=== PATIENT | female | born 1990 | race Caucasian/White ===

== ENCOUNTER → 2016-05-08 | Outpatient (CLI) | payer OTHER ==
[~2016-05-08] MED LIST: GADOBUTROL 10 ML VIAL IVP ONE
== END ==
LOC: FIMAGING 10:32
PROVIDERS: ATTEND Family Medicine Sports Medicine
DX: R91.8 Other nonspecific abnormal finding of lung field (principal)
CPT/HCPCS: A9585

== ENCOUNTER 2016-08-30 06:27 | Inpatient (IN) | payer OTHER ==
--- NOTE | 2016-08-25 19:38 | GHP ---
[f rep st] PREOP HISTORY AND PHYSICAL DATE OF ADMISSION: 08/30/2016 HISTORY OF PRESENT ILLNESS: The patient is a 26-year-old female who was found to have a 4.7 x 4.1 x 4.9 cm mass at the apex of her right lung that may originate from the T2-3 foramen. This was incidentally found on a workup after a fall from a chair lift while skiing. She suffered a concussion from this fall , but says those symptoms have resolved. She notes some right shoulder and upper back pain and tingling that she has always attributed to stress. PAST MEDICAL HISTORY: The patient reports being healthy aside from above. PAST SURGICAL HISTORY: Denies. MEDICATIONS: No regular medications. ALLERGIES: No known drug allergies. 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 FAMILY HISTORY: Noncontributory. REVIEW OF SYSTEMS: A 10-point review of systems negative aside from that in the HPI. EXAM: GENERAL: Alert and oriented x3. No acute distress. Normal BMI. Well- developed, well-nourished. HEENT: Pupils equal and round. No icterus. NECK: Some tingling upon palpation of the supraclavicular space, possible mass appreciated here. PULMONARY: Clear to auscultation bilaterally. No wheezes, rhonchi, or rales. CARDIAC: Regular rate and rhythm. ABDOMEN: Soft, nontender. EXTREMITIES: Warm and well perfused with good upper extremity strength and range of motion. IMPRESSION: This is a 26-year-old female with a fairly large tumor in her right chest, potentially originating from the T2-3 foramen, likely schwannoma. PLAN: We will proceed with a right VATS surgery with possible right upper lobe lung resection, possible nerve sheath tumor excision. This surgery should be in conjunction with Dr. Galeana of Neurosurgery. Risks including open procedure, damage to nerves or blood vessels, damage to the lung or other structures were discussed, and she requests to proceed. /[id number]/MODL MTDD
[2016-08-30] MEDS ORDERED: ceFAZolin 2 GM/DEXTROSE 100 ML IV ONE (06:54)
[2016-08-30] MEDS ORDERED: LR 1,000 ML IV ONE (06:57)
[2016-08-30] MEDS ORDERED: LIDOCAINE 1% 2 ML INJ ID PRN (06:57)
[2016-08-30] MEDS ORDERED: LIDOCAINE 1% 2 ML INJ ONE (07:01)
[2016-08-30] MEDS ORDERED: BUPIVACAINE/EPI 0.5% 30 ML SDV ONE ×2 (07:03→07:09)
[2016-08-30 07:48] LABS: ADD DIFF? YES; ADD MORPH? NO; FRAGMENT RBC FLAG 0 (0-99); HEMATOCRIT 42.9 % (38.0-47.0); HEMOGLOBIN 14.6 g/dL (12.6-16.3); LEFT SHIFT FLG 0 (0-99); LIPEMIA HEMOLYSIS FLAG 90 (0-99); MEAN CELL HEMOGLOBIN 31.8 pg (27.9-34.1); MEAN CELL VOLUME 93.5 fL (81.5-99.8); MEAN PLATELET VOLUME 10.2 fL (8.7-11.7); PLATELET CLUMPS FLAG 0 (0-99); PLATELET COUNT 241 10^3/uL (150-400); RED BLOOD CELL COUNT 4.59 10^6/uL (4.18-5.33); RED CELL DISTRIBUTION WIDTH 12.2 % (11.5-15.2)
[2016-08-30] MEDS ORDERED: MIDAZOLAM 2 MG/2 ML VIAL IVP ONE (07:50)
--- NOTE | 2016-08-30 07:50 | PDANEPAE ---
ANE History of Present Illness r vats for mass ANE Past Medical History - Cardiovascular History Hx Hypertension: No Hx Arrhythmias: No Hx Chest Pain: No Hx Coronary Artery / Peripheral Vascular Disease: No Hx CHF / Valvular Disease: No Hx Palpitations: No - Pulmonary History Hx COPD: No Hx Asthma/Reactive Airway Disease: No Hx Recent Upper Respiratory Infection: No Hx Oxygen in Use at Home: No - Neurologic History Hx Cerebrovascular Accident: No Hx Seizures: No Hx Dementia: No - Endocrine History Hx Diabetes: No - Renal History Hx Renal Disorders: No - Liver History Hx Hepatic Disorders: No - Neurological & Psychiatric Hx Hx Neurological and Psychiatric Disorders: No - Cancer History Hx Cancer: No - Congenital Disorder History Hx Congenital Disorders: No - GI History Hx Gastrointestinal Disorders: No - Chronic Pain History Chronic Pain: No ANE Review of Systems Review of systems is: negative - Exercise capacity Exercise capacity: >=4 METS METS (RN): 4 METS ANE Patient History - Allergies Allergies/Adverse Reactions: No Known Drug Allergies Allergy (Verified 08/29/16 17:35) - Home Medications Home Medications: NK [No Known Home Meds] 08/29/16 [Last Taken Unknown] - NPO status NPO Since - Liquids (Date): 08/29/16 NPO Since - Liquids (Time): 22:00 NPO Since - Solids (Date): 08/29/16 NPO Since - Solids (Time): 22:00 - Anes Hx Anes Hx: no prior problems - Smoking Hx Smoking Status: Never smoked - Family Anes Hx Family Hx Anesthesia Complications: NEG ANE Labs/Vital Signs - Labs Result Diagrams: 08/30/16 07:33 - Vital Signs Blood Pressure: 110/61 Heart Rate: 67 Respiratory Rate: 14 O2 Sat (%): 97 Height: 162.56 cm Weight: 54.431 kg ANE Physical Exam - Airway Neck exam: FROM Mallampati Score: Class 1 - Pulmonary Pulmonary: no respiratory distress - Cardiovascular Cardiovascular: regular rate and rhythym - ASA Status ASA Status: II ANE Anesthesia Plan Anesthesia Plan: general endotracheal anesthesia
[2016-08-30 07:51] LABS: ADD SCAN? NO; ATYPICAL LYMPHOCYTE FLAG 100 (0-99)
[2016-08-30] MEDS ORDERED: PREGABALIN 150 MG CAP PO ONE (07:51)
[2016-08-30] MEDS ORDERED: ROCURONIUM 100 MG/10 ML VIAL ONE (07:59)
[2016-08-30] MEDS ORDERED: PROPOFOL 200 MG/20 ML VIAL ONE (07:59)
[2016-08-30] MEDS ORDERED: fentaNYL 100 MCG/2 ML INJ ONE ×3 (07:59→11:42)
[2016-08-30] MEDS ORDERED: LIDOCAINE 2% 5 ML SDV ONE (07:59)
[2016-08-30 08:29] LABS: PLATELET ESTIMATE ADEQUATE (ADEQ)
[2016-08-30] MEDS ORDERED: HYDROmorphONE/DILAUDID 2 MG/ML INJ ONE (08:53)
[2016-08-30] MEDS ORDERED: ONDANSETRON 4 MG/2 ML VIAL ONE (08:56)
[2016-08-30] MEDS ORDERED: DEXAMETHASONE 4 MG/ML VIAL ONE ×2 (08:56)
[2016-08-30] MEDS ORDERED: PROMETHAZINE HCL 25 MG/ML INJ IVP PRN (10:02)
[2016-08-30] MEDS ORDERED: NALOXONE HCL 0.4 MG/ML INJ IVP PRN (10:02)
[2016-08-30] MEDS ORDERED: OXYCODONE/APAP 5/325 TAB PO PRN (10:02)
[2016-08-30] MEDS ORDERED: ACETAMINOPHEN 500 MG TAB PO PRN (10:02)
[2016-08-30] MEDS ORDERED: ONDANSETRON 4 MG/2 ML VIAL IVP PRN ×2 (10:02→10:49)
[2016-08-30] MEDS ORDERED: MEPERIDINE 25 MG/ML SYR IVP PRN (10:02)
[2016-08-30] MEDS ORDERED: ALBUTEROL 3 ML DEYVIAL IH PRN (10:02)
[2016-08-30] MEDS ORDERED: THROMBIN (BOVINE) 20,000 UNIT SPRAY TP ONE (10:08)
[2016-08-30] MEDS ORDERED: SUGAMMADEX SODIUM 200 MG/2 ML VIAL IVP ONE (10:24)
--- NOTE | 2016-08-30 10:49 | POSTOPPROG ---
Post Op Note Date of Operation: 08/30/16 Surgeon: Tutu Myles Wooden Tank Erector: Altagracia Joseph; Dr. Romeo Galeana, neurosurgery present for case Anesthesiologist: Romeo Valderrama Anesthesia: GET(General Endotracheal) Pre-op Diagnosis: right apical chest mass Post-op Diagnosis: same, probable schwannoma Procedure: R VATS with apical chest mass excision Findings: rounded fixed mass at R ight apex originating from foramen Inf/Abcess present in the surg proc area at time of surgery?: No EBL: 50-100 Complications: none Specimen(s): to pathology
[2016-08-30] MEDS ORDERED: HYDROmorphONE/DILAUDID 1 MG/ML SYR ONE (11:07)
[2016-08-30] MEDS: fentaNYL 100 MCG/2 ML INJ IVP PRN ×5 (11:09→12:17)
[2016-08-30] MEDS: HYDROmorphONE/DILAUDID 1 MG/ML SYR IVP PRN ×6 (11:11→15:40)
--- NOTE | 2016-08-30 12:45 | POSTANESTH ---
Post Anesthetic Evaluation Cardiovascular Status: Normal, Stable Respiratory Status: Normal, Stable Level of Consciousness/Mental Status: Can Participate in Eval Pain Control: Adequate, Prn Tx Ordered Nausea/Vomiting Control: Adequate, Prn Tx Ordered Complications Possibly Related to Anesthesia: None Noted
[2016-08-30] MEDS: NS 1,000 ML IV SCH ×2 (13:26→23:16)
[2016-08-30 15:24] LABS: HEMATOCRIT 37.6 % (38.0-47.0); HEMOGLOBIN 12.8 g/dL (12.6-16.3)
--- NOTE | 2016-08-30 19:46 | SOAPPROG ---
SOAP Progress Note Assessment/Plan: Assessment: POSTOP RESECTION OF A RIGHT APICAL CHEST [place] CHEST X-RAY SHOWS A WELL EXPANDED LUNG/NO AIR LEAK/MINIMAL DRAINAGE BREATH SOUNDS ARE EQUAL VITAL SIGNS STABLE/AFEBRILE Plan: HOPEFULLY DC CHEST TUBE IN THE A.M. 08/30/16 19:43 Objective: Vital Signs Temp Pulse Resp BP Pulse Ox 36.6 C 71 16 96/58 L 96 08/30/16 16:00 08/30/16 16:34 08/30/16 16:34 08/30/16 16:34 08/30/16 16:34 Laboratory Results 08/30/16 15:00 08/29/16 08/30/16 08/31/16 05:59 05:59 05:59 Intake Total 910 Output Total 480 Balance 430 ICD10 Worksheet Patient Problems: Problems Problem Status Onset Mass of right chest wall Acute RIGHT Acute - ICD10 Problem Qualifiers (2) Mass of right chest wall
[2016-08-30] MEDS: OXYCODONE/APAP 5/325 TAB PO PRN (21:06)
[2016-08-30] MEDS: DOCUSATE SODIUM 100 MG CAP PO SCH (21:07)
[2016-08-31] MEDS: OXYCODONE/APAP 5/325 TAB PO PRN ×2 (03:34→11:04)
[2016-08-31 06:29] LABS: HEMATOCRIT 28.6 % (38.0-47.0); HEMOGLOBIN 9.7 g/dL (12.6-16.3)
[2016-08-31] MEDS ORDERED: ALBUMIN 5% 500 ML IV ONE (07:36)
[2016-08-31] MEDS: DOCUSATE SODIUM 100 MG CAP PO SCH ×2 (07:56→21:38)
[2016-08-31 09:58] LABS: HEMATOCRIT 24.9 % (38.0-47.0); HEMOGLOBIN 8.5 g/dL (12.6-16.3)
[2016-08-31] MEDS: NS 1,000 ML IV SCH ×2 (10:02→21:38)
--- NOTE | 2016-08-31 10:12 | SOAPPROG ---
SOAP Progress Note Assessment/Plan: Assessment/Plan: 26 Y F s/p R VATS with resection of apical chest mass, likely schwannoma, POD#1. Acute post op blood loss anemia. H&H trending down. Hypotensive, but has been stable with this--not dropping. Responsive to colloids. Will give 1 u pRBCs. Continue smith until H&H stabilizes for accurate I&O's. Uop has been ok thus far. Will go back to clear liquid diet as a precaution. Doubt need for OR. S: sleepy, hasn't gotten oob, no sob O: somnolent but easily arousable and appropriate decreased R base, no air leak, poor cough effort rrr abd soft wound well dressed, no saturation ext wwp, no edema 08/31/16 10:08 Objective: Vital Signs Temp Pulse Resp BP Pulse Ox 36.9 C 59 L 16 100/56 L 100 08/31/16 07:47 08/31/16 07:47 08/31/16 07:47 08/31/16 08:43 08/31/16 07:47 Laboratory Results 08/31/16 09:42 08/30/16 08/31/16 09/01/16 05:59 05:59 05:59 Intake Total 1611 Output Total 580 650 Balance 1031 -650 ICD10 Worksheet Patient Problems: Problems Problem Status Onset Mass of right chest wall Acute RIGHT Acute
[2016-08-31] MEDS ORDERED: ONDANSETRON 4 MG/2 ML VIAL IVP PRN (11:57)
[2016-08-31 14:57] LABS: HEMATOCRIT 29.2 % (38.0-47.0)
[2016-09-01 05:14] LABS: HEMATOCRIT 29.7 % (38.0-47.0); HEMOGLOBIN 10.2 g/dL (12.6-16.3)
[2016-09-01] MEDS: DOCUSATE SODIUM 100 MG CAP PO SCH ×2 (07:24→20:54)
[2016-09-01] MEDS: OXYCODONE/APAP 5/325 TAB PO PRN ×3 (07:24→22:31)
[2016-09-01] MEDS ORDERED: ENOXAPARIN 40 MG/0.4 ML SYR SC SCH (09:00)
[2016-09-01] MEDS: NS 1,000 ML IV SCH ×2 (13:53→22:31)
[2016-09-02] MEDS: NS 1,000 ML IV SCH (06:22)
[2016-09-02] MEDS: OXYCODONE/APAP 5/325 TAB PO PRN (07:44)
[2016-09-02] MEDS: DOCUSATE SODIUM 100 MG CAP PO SCH (07:44)
[2016-09-02 12:34] VITALS: RESP 18; O2SAT 95
--- NOTE | 2016-09-02 13:13 | SOAPPROG ---
SOAP Progress Note Assessment/Plan: Assessment: POSTOP RESECTION OF A RIGHT APICAL CHEST [place] CHEST X-RAY SHOWS A WELL EXPANDED LUNG/NO AIR LEAK/MINIMAL DRAINAGE BREATH SOUNDS ARE EQUAL VITAL SIGNS STABLE/AFEBRILE Plan: HOPEFULLY DC CHEST TUBE IN THE A.M. 08/30/16 19:43 09/02/16 13:12 Doing well today/afebrile/no air leak/minimal drainage/chest tube DC'd/ home today Objective: Vital Signs Temp Pulse Resp BP Pulse Ox 36.7 C 62 18 102/61 95 09/02/16 12:00 09/02/16 12:00 09/02/16 12:00 09/02/16 12:00 09/02/16 12:00 Laboratory Results 09/01/16 05:00 09/01/16 09/02/16 09/03/16 05:59 05:59 05:59 Intake Total 1586 2406 783 Output Total 1625 120 Balance -39 0611 783 ICD10 Worksheet Patient Problems: Problems Problem Status Onset Mass of right chest wall Acute RIGHT Acute - ICD10 Problem Qualifiers (2) Mass of right chest wall
[2016-09-02 16:04] VITALS: BP 111/72; PULSE 63; TEMP 98.4
== END 2016-09-02 17:07 | disposition home or self-care (01) | DRG 982 ==
LOC: F3E 06:27
PROVIDERS: ADMIT Surgery; ATTEND Surgery
DX: D21.3 Benign neoplasm of connective and other soft tissue of thorax (principal); D62 Acute posthemorrhagic anemia
CPT/HCPCS: J0690; J1100; J1170; J2250; J2405; J2704; J3010; P9016; P9021; P9041

== ENCOUNTER → 2016-09-05 | Outpatient (CLI) | payer OTHER | LOC: FIMAGING 14:52 | PROVIDERS: ATTEND Surgery | DX: J94.8 Other specified pleural conditions (principal); Z98.890 Other specified postprocedural states ==

== ENCOUNTER → 2016-09-19 | Outpatient (CLI) | payer OTHER | LOC: FIMAGING 11:39 | PROVIDERS: ATTEND Surgery | DX: R91.8 Other nonspecific abnormal finding of lung field (principal); Z48.89 Encounter for other specified surgical aftercare ==